=== PATIENT | male | born 1955 | race Caucasian/White ===

== ENCOUNTER 2016-08-23 06:01 | Emergency (ER) | payer OTHER ==
[2016-08-23 06:38] LABS: HEMOGLOBIN 16.2 gm/dl (14.0-17.5); RED BLOOD COUNT 5.2 M/UL (4.20-5.50); WHITE BLOOD COUNT 11.1 K/UL (4.5-11.0)
[2016-08-23 07:03] LABS: BUN/CREATININE RATIO 23 (0-10)
== END 2016-08-23 11:35 | disposition home or self-care (01) ==
LOC: ER1 06:01
PROVIDERS: Family Medicine
DX: R10.84 Generalized abdominal pain (principal); R11.2 Nausea with vomiting, unspecified; E11.9 Type 2 diabetes mellitus without complications; E78.5 Hyperlipidemia, unspecified; I10 Essential (primary) hypertension; F17.210 Nicotine dependence, cigarettes, uncomplicated; Z88.8 Allergy status to other drugs, medicaments and biological substances
CPT/HCPCS: 36415; 71010; 80053; 81001; 82150; 82550; 82553; 82962; 83605; 83690; 83874; 84484; 85025; 93005; 96361; 96374; 96375; 99285; 99291; J2270; J2405; J7030; J7050; Q9962

== ENCOUNTER 2016-08-23 20:11 | Emergency (ER) | payer OTHER ==
[2016-08-23 20:52] LABS: HEMOGLOBIN 16.6 gm/dl (14.0-17.5); RED BLOOD COUNT 5.27 M/UL (4.20-5.50)
== END 2016-08-23 23:59 ==
LOC: ER1 20:11
PROVIDERS: Family Medicine
DX: K85.91 Acute pancreatitis with uninfected necrosis, unspecified (principal); E11.9 Type 2 diabetes mellitus without complications; J44.9 Chronic obstructive pulmonary disease, unspecified; I10 Essential (primary) hypertension; F17.210 Nicotine dependence, cigarettes, uncomplicated
CPT/HCPCS: 36415; 80053; 83605; 83690; 84484; 85025; 96361; 96374; 96375; 99291; J2270; J2405; J7030; J7050; Q9962

== ENCOUNTER 2016-10-07 15:58 | Emergency (ER) | payer OTHER ==
[2016-10-07 16:51] LABS: HEMOGLOBIN 12.1 gm/dl (14.0-17.5); RED BLOOD COUNT 4.01 M/UL (4.20-5.50); WHITE BLOOD COUNT 9.8 K/UL (4.5-11.0)
[2016-10-07 17:13] LABS: BUN/CREATININE RATIO 20 (0-10)
== END 2016-10-07 20:50 | disposition short-term general hospital (02) ==
LOC: ER1 15:58
PROVIDERS: Preventive Medicine Occupational Medicine
DX: K85.90 Acute pancreatitis without necrosis or infection, unspecified (principal); J44.9 Chronic obstructive pulmonary disease, unspecified; Z87.891 Personal history of nicotine dependence; Z88.5 Allergy status to narcotic agent; Z79.899 Other long term (current) drug therapy; Z79.84 Long term (current) use of oral hypoglycemic drugs
CPT/HCPCS: 36415; 80053; 81001; 82962; 83690; 85025; 86140; 87040; 96374; 96375; 96376; 99285; J2405; J7050; Q9962

== ENCOUNTER 2016-10-22 16:57 | Emergency (ER) | payer OTHER ==
[2016-10-22 18:22] LABS: HEMOGLOBIN 13.5 gm/dl (14.0-17.5); RED BLOOD COUNT 4.54 M/UL (4.20-5.50); WHITE BLOOD COUNT 12.1 K/UL (4.5-11.0)
[2016-10-22 18:38] LABS: BUN/CREATININE RATIO 24 (0-10)
== END 2016-10-22 20:47 | disposition home or self-care (01) ==
LOC: ER1 16:57
PROVIDERS: Emergency Medicine
DX: R10.9 Unspecified abdominal pain (principal); Z88.5 Allergy status to narcotic agent
CPT/HCPCS: 36415; 80053; 81001; 82150; 83690; 85025; 87086; 99284

== ENCOUNTER 2016-10-23 09:03 | Emergency (ER) | payer OTHER ==
[2016-10-23 10:33] LABS: HEMOGLOBIN 13.3 gm/dl (14.0-17.5); RED BLOOD COUNT 4.53 M/UL (4.20-5.50); WHITE BLOOD COUNT 12.8 K/UL (4.5-11.0)
[2016-10-23 11:04] LABS: BUN/CREATININE RATIO 20 (0-10)
== END 2016-10-23 11:35 | disposition home or self-care (01) ==
LOC: ER1 09:03
PROVIDERS: Family Medicine
DX: R10.9 Unspecified abdominal pain (principal); E11.65 Type 2 diabetes mellitus with hyperglycemia; F17.200 Nicotine dependence, unspecified, uncomplicated; Z88.5 Allergy status to narcotic agent; Z79.84 Long term (current) use of oral hypoglycemic drugs; Z93.1 Gastrostomy status; Z90.49 Acquired absence of other specified parts of digestive tract
CPT/HCPCS: 36415; 80053; 83605; 83690; 85025; 99284; J7040

== ENCOUNTER 2016-10-28 03:15 | Emergency (ER) | payer OTHER ==
[2016-10-28 04:47] LABS: HEMOGLOBIN 12.3 gm/dl (14.0-17.5); RED BLOOD COUNT 4.17 M/UL (4.20-5.50); WHITE BLOOD COUNT 15.3 K/UL (4.5-11.0)
[2016-10-28 04:59] LABS: BUN/CREATININE RATIO 31 (0-10)
== END 2016-10-28 07:07 | disposition short-term general hospital (02) ==
LOC: ER1 03:15
PROVIDERS: Physician Assistant
DX: K65.1 Peritoneal abscess (principal); K86.3 Pseudocyst of pancreas; E11.9 Type 2 diabetes mellitus without complications; E78.5 Hyperlipidemia, unspecified; I10 Essential (primary) hypertension; F17.210 Nicotine dependence, cigarettes, uncomplicated; Z88.5 Allergy status to narcotic agent; Z79.899 Other long term (current) drug therapy; Z79.84 Long term (current) use of oral hypoglycemic drugs
CPT/HCPCS: 36415; 80053; 81001; 83605; 83690; 84484; 85025; 87040; 93005; 96361; 96365; 96375; 99285; J2405; J2543; J7030; J7050; Q9962

== ENCOUNTER 2016-10-31 22:50 | Emergency (ER) | payer OTHER ==
[2016-10-31 23:05] LABS: HEMOGLOBIN 11.4 gm/dl (14.0-17.5); RED BLOOD COUNT 3.87 M/UL (4.20-5.50); WHITE BLOOD COUNT 10.6 K/UL (4.5-11.0)
[2016-10-31 23:24] LABS: BUN/CREATININE RATIO 23 (0-10)
== END 2016-11-01 04:25 | disposition home or self-care (01) ==
LOC: ER1 22:50 → ZEROF 11-01 02:50 → ER1 11-01 04:25
PROVIDERS: Family Medicine
DX: R07.89 Other chest pain (principal); E11.9 Type 2 diabetes mellitus without complications; E78.5 Hyperlipidemia, unspecified; I10 Essential (primary) hypertension; J44.9 Chronic obstructive pulmonary disease, unspecified; K85.90 Acute pancreatitis without necrosis or infection, unspecified; F17.210 Nicotine dependence, cigarettes, uncomplicated; Z88.5 Allergy status to narcotic agent; Z79.84 Long term (current) use of oral hypoglycemic drugs
CPT/HCPCS: 36415; 71010; 80053; 82550; 82553; 83874; 84484; 85025; 85379; 93005; 99285; J7030; J7050; Q9963

== ENCOUNTER 2016-11-04 03:09 | Emergency (ER) | payer OTHER | END 2016-11-04 07:15 | disposition home or self-care (01) | LOC: ER1 03:09 | DX: R22.0 Localized swelling, mass and lump, head (principal); R20.0 Anesthesia of skin; E11.9 Type 2 diabetes mellitus without complications; F17.210 Nicotine dependence, cigarettes, uncomplicated; Z90.49 Acquired absence of other specified parts of digestive tract; Z79.84 Long term (current) use of oral hypoglycemic drugs; Z79.899 Other long term (current) drug therapy | CPT/HCPCS: 99283 ==

== ENCOUNTER 2020-06-23 13:26 | Emergency (ER) | payer OTHER ==
[~2020-06-23 13:26] MED LIST: AFLURIA 2045 MCG/0.9 IM; AUGMENTIN 875-1 EACH PO; BENADRYL 25MG C25 MG PO; BENADRYL 50MG C50 MG PO; BENADRYL25 MG PO; BOOSTRIX IM; CALAMINE LOTIO177 ML TP; CLARITIN10 M2 PO; CLEOCIN HCL300 MG PO; CRESTOR 10 MG T10 MG PO; ELIMITE 5% CREA60 GM TOP; FLONASE 0.05% N16 GM; FLOXIN 0.3% OTIC5 ML AD; GLUCOPHAGE1000 MG PO; GLUCOSE GEL 37.15 GM BU; IBUPROFEN800 MG PO; LEVEMIR100 UNIT/1 SQ; MELATONIN5 MG PO; MICROZIDE12.5 MG PO; NORCO 5-325 TA1 EACH PO; NORFLEX 100 MG100 MG PO; NOVOLOG100 UNIT/1 SQ; PEPCID20 MG PO; PNEUMOCOCCAL 13 VALENT CONJUGATE VACCINE IM; PREDNISONE 10 M10 MG PO; PREDNISONE 20 M20 MG PO; PREDNISONE20 MG PO; PREDNISONE50 MG PO; PRINIVIL10 MG PO; SINGULAIR10 MG PO; VENTOLIN HFA 66.7 GM INH; VISTARIL 25 MG25 MG PO; VISTARIL25 MG PO; VOLTAREN100 GM TP; Viscous lidocaine2% TOP; Voltaren Gel 1% TOP
== END 2020-06-23 16:39 | disposition home or self-care (01) ==
LOC: ER1 13:26
DX: M54.16 Radiculopathy, lumbar region (principal); R26.2 Difficulty in walking, not elsewhere classified; E11.9 Type 2 diabetes mellitus without complications; F17.210 Nicotine dependence, cigarettes, uncomplicated; Z79.4 Long term (current) use of insulin; Z87.39 Personal history of other diseases of the musculoskeletal system and connective tissue
CPT/HCPCS: 72131; 96372; 99283; J1885

== ENCOUNTER 2020-06-27 22:54 | Emergency (ER) | payer OTHER ==
[2020-06-27 23:31] LABS: HEMOGLOBIN 15.9 gm/dl (14.0-17.5); RED BLOOD COUNT 5.11 M/UL (4.20-5.50); WHITE BLOOD COUNT 17.3 K/UL (4.5-11.0)
[2020-06-28 00:01] LABS: BUN/CREATININE RATIO 39 (0-10)
== END 2020-06-28 01:11 ==
LOC: ER1 22:54
PROVIDERS: Emergency Medicine
DX: M46.36 Infection of intervertebral disc (pyogenic), lumbar region (principal); M62.82 Rhabdomyolysis; E11.65 Type 2 diabetes mellitus with hyperglycemia; E11.22 Type 2 diabetes mellitus with diabetic chronic kidney disease; N18.9 Chronic kidney disease, unspecified; R33.9 Retention of urine, unspecified; K02.9 Dental caries, unspecified; L89.219 Pressure ulcer of right hip, unspecified stage; F17.200 Nicotine dependence, unspecified, uncomplicated; Z20.822 Contact with and (suspected) exposure to COVID-19
CPT/HCPCS: 36415; 51702; 70450; 71045; 72125; 72128; 72131; 73522; 80053; 81001; 82009; 82550; 82553; 83605; 83690; 83735; 83874; 83880; 84484; 85025; 85610; 85730; 87040; 87076; 87077; 93005; 96374; 96375; 99285; J2185; J2270; J2405; J3370; J7070; U0002

== ENCOUNTER 2021-02-20 10:50 | Emergency (ER) | payer OTHER ==
[2021-02-20 11:45] LABS: HEMOGLOBIN 15.2 gm/dl (14.0-17.5); RED BLOOD COUNT 4.83 M/UL (4.20-5.50); WHITE BLOOD COUNT 10.3 K/UL (4.5-11.0)
[2021-02-20 12:15] LABS: BUN/CREATININE RATIO 16 (0-10)
[2021-02-20] MEDS ORDERED: OMNICEF 300 MG300 MG PO (13:39)
== END 2021-02-20 14:40 | disposition home or self-care (01) ==
LOC: ER1 10:50
PROVIDERS: Family Medicine
DX: N43.3 Hydrocele, unspecified (principal); N30.90 Cystitis, unspecified without hematuria; E11.9 Type 2 diabetes mellitus without complications; E87.6 Hypokalemia; Z79.1 Long term (current) use of non-steroidal anti-inflammatories (NSAID); Z88.6 Allergy status to analgesic agent; F17.200 Nicotine dependence, unspecified, uncomplicated
CPT/HCPCS: 76870; 80048; 81001; 85025; 96374; 96375; 99284; J0696; J1885